=== PATIENT | male | born 1970 | race Asian ===

== ENCOUNTER 2019-01-17 11:11 | Emergency (ER) | payer OTHER | END 2019-01-17 16:29 | disposition home or self-care (01) | LOC: JER 11:11 ==

== ENCOUNTER 2019-09-21 04:30 | Emergency (ER) | payer OTHER ==
[2019-09-21 06:01] VITALS: BP 133/85; PULSE 88; TEMP 99.8; BMI 25.8
--- NOTE | 2019-09-21 06:06 | PDOC ---
History of Present Illness - General Chief Complaint: Cold Symptoms Stated Complaint: BODY ACHE, SHAKING,NAUSEA Time Seen by Provider: 09/21/19 06:06 - History of Present Illness Initial Comments: 09/21/19 06:29 Pt is a 49y/o male with no PMH who presents with a day and a half of subjective fevers, myalgias, and nasal pain. He has taken Advil Sinus with some relief. He reports headache, dizziness, nausea, chills, and insomnia. He denies chest pain , shortness of breath, wheezing, abdominal pain, vomiting, diarrhea, rhinorrhea , sinus congestion, sore throat, and ear pain. He denies sick contacts. He did not receive the flu shot this season. Past History - Past Medical History Allergies/Adverse Reactions: Allergies Allergy/AdvReac Type Severity Reaction Status Date / Time No Known Allergies Allergy Verified 09/21/19 06:00 Home Medications: Ambulatory Orders NK [No Known Home Medication] 01/17/19 COPD: No - Psycho Social/Smoking Cessation Hx Smoking History: Never smoked Hx Alcohol Use: Yes Drug/Substance Use Hx: No Review of Systems - Review of Systems Constitutional: Yes: Chills, Fever HEENTM: Yes: Nose Pain. No: Nose Congestion, Throat Pain Respiratory: No: Cough, Shortness of Breath, Wheezing Cardiac (ROS): No: Chest Pain ABD/GI: No: Diarrhea, Nausea, Vomiting Musculoskeletal: Yes: Joint Pain, Muscle Pain Neurological: Yes: Headache, Dizziness *Physical Exam - Vital Signs Last Vital Signs Temp Pulse Resp BP Pulse Ox 99.8 F H 88 20 133/85 99 09/21/19 04:30 09/21/19 04:30 09/21/19 04:30 09/21/19 04:30 09/21/19 04:30 - Physical Exam General Appearance: Yes: Nourished, Appropriately Dressed. No: Apparent Distress HEENT: positive: EOMI, CHARLENE, Pharynx Normal. negative: Sinus Tenderness Neck: positive: Trachea midline Respiratory/Chest: positive: Lungs Clear Cardiovascular: positive: Regular Rhythm, Regular Rate. negative: Murmur Gastrointestinal/Abdominal: positive: Normal Bowel Sounds. negative: Tender Integumentary: positive: Dry, Warm Neurologic: positive: Fully Oriented, Alert, Normal Mood/Affect Medical Decision Making - Medical Decision Making 09/21/19 06:33 Pt is a 49y/o male with no PMH who presents with a day and a half of subjective fevers, myalgias, and nasal pain. He has taken Advil Sinus with some relief. He reports headache, dizziness, nausea, chills, and insomnia. He denies chest pain , shortness of breath, wheezing, abdominal pain, vomiting, diarrhea, rhinorrhea , sinus congestion, sore throat, and ear pain. He denies sick contacts. He did not receive the flu shot this season. ddx: viral syndrome, influenza orders: Tylenol 650mg, rapid flu Discharge - Discharge Information Problems reviewed: Yes Clinical Impression/Diagnosis: Viral syndrome Condition: Stable Disposition: HOME - Follow up/Referral - Patient Discharge Instructions Patient Printed Discharge Instructions: DI for Viral Upper Respiratory Infection -- Adult Additional Instructions: You were seen in the emergency room for body aches and fevers. You were found to have a viral illness. You were given Tylenol to help with the body aches. You are feeling better and are able to go home. Alternate acetaminophen (Tylenol) 650mg with ibuprofen (Advil) 400mg every 3 hours for pain and fever until you feel better. Follow up with your primary care doctor or return to the emergency room if your symptoms do not improve. - Post Discharge Activity
[2019-09-21] MEDS ORDERED: ACETAMINOPHEN 325 MG TABLET (FP) PO ONE (06:21)
[2019-09-21] MEDS ORDERED: ACETAMINOPHEN 325 MG TABLET (FP) ONE (06:29)
--- NOTE | 2019-09-21 06:49 | PDOC ---
Attending Attestation - Resident Resident Name: Courtney Valdez - ED Attending Attestation I have performed the following: I have examined & evaluated the patient, The case was reviewed & discussed with the resident, I agree w/resident's findings & plan, Exceptions are as noted - HPI HPI: 09/21/19 06:47 49yoM w/ body aches and chills x 2 days. thinks he has a "virus." no documented fevers. + sinus pressure. - Physicial Exam PE: 09/21/19 06:48 nad, well appearing rrr ctabl soft ntnd A&O x 3 - Medical Decision Making 09/21/19 06:49 49yoM w/ viral syndrome. - sxs control - DC.
== END 2019-09-21 07:00 | disposition home or self-care (01) ==
LOC: JER 04:30
DX: B34.9 Viral infection, unspecified (principal)
CPT/HCPCS: 87804; 99282-25